=== PATIENT | male | born 2000 | race Caucasian/White ===

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

== ENCOUNTER 2023-03-20 12:41 | Emergency (ER) | payer OTHER ==
[2023-03-20 12:58] VITALS: BP 114/70; PULSE 100; RESP 20; TEMP 98.6; BMI 24.5
[2023-03-20] MEDS ORDERED: ONDANSETRON 4 MG/2 ML VIAL IVPUSH ONE (14:39)
[2023-03-20] MEDS ORDERED: SODIUM CHLORIDE 0.9% 500 ML INFUS.BAG IV ONE (14:39)
[2023-03-20] MEDS ORDERED: ACETAMINOPHEN 1000 MG/100 ML BAG IVPB ONE (14:39)
[2023-03-20] MEDS ORDERED: FAMOTIDINE 20 MG/50 ML IVPB 20 MG/50 ML MG IVPB ONE ×2 (14:42→14:49)
[2023-03-20] MEDS ORDERED: MAG HYDROX/AL HYDROX/SIMETH 30 ML UNIT-DOSE CUP PO ONE (14:47)
[2023-03-20] MEDS ORDERED: ACETAMINOPHEN INJECTION 100 ML IVPB ONE (14:48)
[2023-03-20] MEDS ORDERED: ONDANSETRON 4 MG/2 ML VIAL ONE (14:48)
[2023-03-20] MEDS ORDERED: FAMOTIDINE 10 MG/ML VIAL IVPB ONE (14:49)
[2023-03-20] MEDS ORDERED: MAG HYDROX/AL HYDROX/SIMETH 30 ML UNIT-DOSE CUP ONE (15:08)
[2023-03-20 15:12] LABS: HEMATOCRIT 49.5 % (35.4-49); HEMOGLOBIN 16.7 GM/dL (11.7-16.9); MCH 30.5 pg (25.7-33.7); MCHC 33.7 g/dl (32.0-35.9); MEAN CELL VOLUME 90.5 fl (80-96); MEAN PLT VOLUME 9.3 fl (7.5-11.1); PLATELET COUNT 312 10^3/uL (134-434); RBC 5.47 M/mm3 (4.00-5.60); RDW 12.8 % (11.9-15.9); WHITE BLOOD COUNT 20.1 K/mm3 (4.0-10.0)
[2023-03-20 15:59] LABS: POTASSIUM 4.6 mmol/L (3.5-5.1)
[2023-03-20 16:02] LABS: ALBUMIN 4.1 g/dl (3.4-5.0); CALCIUM 10.3 mg/dL (8.5-10.1)
[2023-03-20 16:03] LABS: BLOOD UREA NITROGEN 14.1 mg/dL (7-18)
[2023-03-20 16:07] LABS: BILIRUBIN,TOTAL 0.5 mg/dL (0.2-1); TOT PROT 8.6 g/dl (6.4-8.2)
== END 2023-03-20 19:03 | disposition home or self-care (01) ==
LOC: JER 12:41
PROC: 3E033GC Introduction of Other Therapeutic Substance into Peripheral Vein, Percutaneous Approach (ICD-10-PCS; principal; 2023-03-20)
PROC: 3E033GC Introduction of Other Therapeutic Substance into Peripheral Vein, Percutaneous Approach (ICD-10-PCS; 2023-03-20)
PROC: 3E033NZ Introduction of Analgesics, Hypnotics, Sedatives into Peripheral Vein, Percutaneous Approach (ICD-10-PCS; 2023-03-20)
DX: K52.9 Noninfective gastroenteritis and colitis, unspecified (principal); R11.2 Nausea with vomiting, unspecified; R10.13 Epigastric pain; Z20.822 Contact with and (suspected) exposure to COVID-19
CPT/HCPCS: 0241U-QW; 36415; 74177-TC; 80053; 83690; 85025; 99285-25; Q9967

== ENCOUNTER 2023-05-27 21:18 | Emergency (ER) | payer OTHER ==
[2023-05-27 21:27] VITALS: BMI 24.2
[2023-05-27] MEDS ORDERED: ACETAMINOPHEN INJECTION 100 ML IVPB ONE (23:50)
[2023-05-27] MEDS ORDERED: KETOROLAC TROMETHAMINE 30 MG/1 ML VIAL ONE (23:52)
[2023-05-27 23:53] LABS: BASO % 0.4 % (0-2.0); EOS % 1.9 % (0-4.5); HEMATOCRIT 43.1 % (35.4-49); HEMOGLOBIN 15.1 GM/dL (11.7-16.9); LYMPH % 20.2 % (8-40); MCH 31.3 pg (25.7-33.7); MEAN CELL VOLUME 89.4 fl (80-96); MEAN PLT VOLUME 8.8 fl (7.5-11.1); MONO % 9.2 % (3.8-10.2); NEUT % 68.3 % (42.8-82.8); PLATELET COUNT 333 10^3/uL (134-434); RBC 4.82 M/mm3 (4.00-5.60); RDW 12.7 % (11.9-15.9); WHITE BLOOD COUNT 14.6 K/mm3 (4.0-10.0)
[2023-05-27] MEDS: ACETAMINOPHEN 1000 MG/100 ML BAG IVPB ONE (23:58)
[2023-05-27] MEDS: SODIUM CHLORIDE 0.9% 500 ML INFUS.BAG IV ONE (23:58)
[2023-05-27] MEDS: KETOROLAC TROMETHAMINE 30 MG/1 ML VIAL IVPUSH ONE (23:58)
[2023-05-28 00:15] LABS: POTASSIUM 3.6 mmol/L (3.5-5.1)
[2023-05-28 00:17] LABS: BLOOD UREA NITROGEN 10.5 mg/dL (7-18)
[2023-05-28 00:20] LABS: CREATININE 0.9 mg/dL (0.55-1.3)
[2023-05-28 01:32] VITALS: BP 116/71; PULSE 61; RESP 13; TEMP 98.1
[2023-05-28] MEDS ORDERED: DEXAMETHASONE SOD PHOSPHATE 10 MG/1 ML VIAL ONE (02:17)
[2023-05-28] MEDS: DEXAMETHASONE SOD PHOSPHATE 10 MG/1 ML VIAL IVPUSH ONE (02:25)
[2023-05-28] MEDS: PENICILLIN V POTASSIUM 500 MG TABLET PO ONE (03:26)
== END 2023-05-28 03:27 | disposition home or self-care (01) ==
LOC: JER 21:18 → JERFT 21:18 → JER 05-28 03:27
PROC: 3E030NZ Introduction of Analgesics, Hypnotics, Sedatives into Peripheral Vein, Open Approach (ICD-10-PCS; principal; 2023-05-27)
PROC: 3E0303Z Introduction of Anti-inflammatory into Peripheral Vein, Open Approach (ICD-10-PCS; 2023-05-27)
PROC: 3E030GC Introduction of Other Therapeutic Substance into Peripheral Vein, Open Approach (ICD-10-PCS; 2023-05-28)
DX: R07.0 Pain in throat (principal); J02.0 Streptococcal pharyngitis
CPT/HCPCS: 36415; 70491-TC; 80048; 85025; 87651; 96374; 96375; 99285-25; J0131; J1100; Q9967

== ENCOUNTER 2023-06-01 00:15 | Emergency (ER) | payer OTHER ==
[2023-06-01 00:29] VITALS: BP 122/69; PULSE 86; RESP 18; TEMP 98.1; BMI 25.4
== END 2023-06-01 01:53 | disposition home or self-care (01) ==
LOC: JER 00:15
DX: R50.9 Fever, unspecified (principal); U07.1 COVID-19
CPT/HCPCS: 0241U-QW; 71046-TC-FY; 99284-25

== ENCOUNTER 2024-03-14 13:34 | Emergency (ER) | payer OTHER ==
[2024-03-14 13:55] VITALS: BP 149/72; PULSE 104; RESP 16; TEMP 99.6; BMI 23.3
[2024-03-14] MEDS ORDERED: ACETAMINOPHEN 500 MG TABLET (FP) ONE (14:57)
[2024-03-14] MEDS ORDERED: ONDANSETRON *ODT* 4 MG TABLET ONE (14:58)
[2024-03-14] MEDS ORDERED: MAG HYDROX/AL HYDROX/SIMETH 30 ML UNIT-DOSE CUP ONE (14:58)
[2024-03-14] MEDS ORDERED: FAMOTIDINE 20 MG TABLET ONE (14:58)
[2024-03-14] MEDS: MAG HYDROX/AL HYDROX/SIMETH 30 ML UNIT-DOSE CUP PO ONE (14:59)
[2024-03-14] MEDS: FAMOTIDINE 20 MG TABLET PO ONE (14:59)
[2024-03-14] MEDS: ACETAMINOPHEN 500 MG TABLET (FP) PO ONE (14:59)
[2024-03-14] MEDS: ONDANSETRON *ODT* 4 MG TABLET SL ONE (15:00)
[2024-03-14 15:06] LABS: BASO % 0.2 % (0-2.0); EOS % 0.2 % (0-4.5); HEMATOCRIT 48.6 % (35.4-49); HEMOGLOBIN 16.6 GM/dL (11.7-16.9); LYMPH % 4.2 % (8-40); MCH 30.4 pg (25.7-33.7); MCHC 34.1 g/dl (32.0-35.9); MEAN CELL VOLUME 89.3 fl (80-96); MEAN PLT VOLUME 9.4 fl (7.5-11.1); MONO % 6.7 % (3.8-10.2); NEUT % 88.7 % (42.8-82.8); PLATELET COUNT 272 10^3/uL (134-434); RBC 5.45 M/mm3 (4.00-5.60); WHITE BLOOD COUNT 17.8 K/mm3 (4.0-10.0)
[2024-03-14 15:45] LABS: CALCIUM 9.3 mg/dL (8.5-10.1)
[2024-03-14 15:46] LABS: ALBUMIN 4.1 g/dl (3.4-5.0); BLOOD UREA NITROGEN 15.4 mg/dL (7-18)
[2024-03-14 15:50] LABS: BILIRUBIN,TOTAL 0.9 mg/dL (0.2-1)
[2024-03-14 15:51] LABS: TOT PROT 7.9 g/dl (6.4-8.2)
[2024-03-14 16:31] LABS: HIV INTERPRETATION NEGATIVE (NEGATIVE)
== END 2024-03-14 16:33 | disposition home or self-care (01) ==
LOC: JER 13:34
DX: K52.9 Noninfective gastroenteritis and colitis, unspecified (principal); R10.12 Left upper quadrant pain; R11.10 Vomiting, unspecified
CPT/HCPCS: 36415; 80053; 83690; 85025; 86803; 87389; 99283-25; Q0162